=== PATIENT | male | born 1965 | race Caucasian/White ===

== ENCOUNTER → 2020-02-07 | Day surgery (SDC) | payer OTHER ==
[~2020-02-07] MED LIST: ASPIRIN81 MG PO; CRESTOR10 MG PO; ETOMIDATE 2 MG/ML 10 ML INJ IV ONE; EXFORGE 10-1601 EACH PO; EXFORGE 10-3201 EACH PO; FENTANYL CITRATE/PF 100MCG/2 ML INJ ONE; HYOSCYAMINE 0.125 MG TAB ONE; KETAMINE HCL INJ 50 MG/ML 10 ML VIAL ONE; LIDOCAINE HCL 2% LOCAL INJ 5 ML SDV VIAL INJ ONE; MIDAZOLAM HCL 2 MG/2 ML VIAL ONE; MULTI-VITAMIN1 EACH PO; PROPOFOL IV EMULSION 10 MG/ML 20 ML VIAL ONE
[2020-02-07 10:55] VITALS: BP 100/69
--- NOTE | 2020-02-07 11:28 | Operative Report ---
DATE OF PROCEDURE: 02/07/2020 SURGEON: Roger Carranza MD PROCEDURE: Colonoscopy with polypectomy. INDICATIONS FOR COLONOSCOPY: Surveillance colonoscopy, personal history of colon polyps. MEDICATIONS: The patient was done under MAC, please see anesthesiologist's note. PROCEDURE IN DETAIL: With the patient in the left lateral decubitus position, a flexible fiberoptic Olympus colonoscope was inserted into the rectum with ease and advanced all the way to the cecum. It was then withdrawn slowly. Mucosa overlying the cecum, ascending colon, and transverse colon appeared to be within normal limits. One polyp was hot snared, one polyp was hot biopsied, and one polyp was removed per the cold biopsy forceps from the descending colon. Some scattered diverticular disease was noted in the distal descending and the sigmoid colon. One polyp was hot snared from the sigmoid colon. The rectum appeared to be within normal limits. The scope was then retroflexed into the distal rectum and small internal hemorrhoids were noted, none of which was actively bleeding. The scope was then straightened out, it was subsequently withdrawn, and the patient tolerated the procedure well. IMPRESSION: 1. Descending colon polyps x3, one hot snared, one removed per hot biopsy forceps, and one polyp removed per the cold biopsy forceps. 2. Sigmoid colon polyp, hot snared. 3. Diverticulosis. 4. Internal hemorrhoids, none actively bleeding. PLAN: Follow up histology. Initiate high-fiber, low-fat diet. Initiate high-fiber supplement. The patient might benefit from a followup colonoscopy in 3 years. Roger Carranza MD [facility] [place] /[id number] cc: Krzysztof Munoz DO
== END | disposition home or self-care (01) ==
LOC: OR 07:49
PROVIDERS: ATTEND Internal Medicine Gastroenterology
DX: Z12.11 Encounter for screening for malignant neoplasm of colon (principal); D12.5 Benign neoplasm of sigmoid colon; E78.00 Pure hypercholesterolemia, unspecified; K57.30 Diverticulosis of large intestine without perforation or abscess without bleeding; K64.8 Other hemorrhoids; I10 Essential (primary) hypertension; Z68.36 Body mass index [BMI] 36.0-36.9, adult; Z87.891 Personal history of nicotine dependence; Z86.010 Personal history of colon polyps; Z11.59 Encounter for screening for other viral diseases
CPT/HCPCS: 45380; 45385; 87635; 93005; J2001; J2250; J2704; J3010; 45384